=== PATIENT | male | born 1985 | race Two or more races ===

== ENCOUNTER 2024-10-19 06:25 | Day surgery (SDC) | payer BC, SELFPAY ==
--- NOTE | 2024-10-18 06:21 | EKG_ITS ---
[facility] Test Date: 2024-10-18 Pat Name: CLINT HASTINGS Department: Room: - Gender: Male Occupational Health Nurse Manager: RT STUDENT : 1985 Requested By: Trini Aldridge Order Number: [id number] Reading MD: Trini Aldridge Measurements Intervals [place] Rate: 68 P: 28 OR: 134 QRS: -33 QRSD: 94 T: -2 QT: 380 QTc: 404 Interpretive Statements SINUS RHYTHM WITH SINUS ARRHYTHMIA MARKED LEFT AXIS DEVIATION No previous ECG available for comparison /store/[id number]/[id number].pdf
[2024-10-18 08:48] VITALS: BMI 28.2
[2024-10-18 10:01] LABS: Basophils % (Auto) 0 % (0-2.5); Eosinophils # (Auto) 0.1 Thou/mm3 (0.0-0.5); Eosinophils % (Auto) 1 % (0-10); Hematocrit 50.6 % (41.0-53.0); Hemoglobin 17.7 g/dL (13.5-16.0); Immature Granulocytes % (Auto) 0 % (0-0); Immature Granulocytes Auto 0.02 Thou/mm3 (0.00-0.00); Lymphocytes # (Auto) 1.4 Thou/mm3 (1.0-4.8); Lymphocytes % (Auto) 28 % (10-50); Mean Corpuscular Hemoglobin 30.2 pg (25.0-35.0); Mean Corpuscular Volume 86 fL (80-100); Monocytes # (Auto) 0.4 Thou/mm3 (0.0-0.8); Monocytes % (Auto) 8 % (0-12); Neutrophils % (Auto) 61 % (37-80); Nucleated Red Blood Cell % 0 /100 WBC (0); Platelet Count 319 Thou/mm3 (140-440); RDW Standard Deviation 39.4 fL (35.1-43.9); Red Blood Count 5.87 Miln/mm3 (4.50-5.90); White Blood Count 4.9 Thou/mm3 (3.8-10.6)
[2024-10-18 10:09] LABS: Anion Gap 6 (7-16); BUN/Creatinine Ratio 11 Ratio (12-20); Blood Urea Nitrogen 13 mg/dL (9-23); Calcium 9.9 mg/dL (8.3-10.6); Carbon Dioxide 28.1 mMol/L (20.0-31.0); Chloride 104 mMol/L (98-107); Creatinine (Component) 1.2 mg/dL (0.6-1.3); Estimated Creatinine Clearance 81.1 mL/min (>60); Glucose 102 mg/dL (74-106); Osmolality,Calculated 275 (275-295); Potassium 4.7 mMol/L (3.4-5.1); Sodium 138 mMol/L (136-145); eGFR > 60 See Note
[2024-10-19] VITALS (8 sets, daily range): BP systolic 137–164; BP diastolic 87–110; PULSE 58–88; RESP 12–18; TEMP 36.5–37.1; O2SAT 92–100
--- NOTE | 2024-10-19 10:35 | SUR.PHASEI ---
1035: Pt. AAOx4, vitals stable, breathing unlabored, complaint of pain, will give medications, no complaint of nausea, dressing to ABD CDI, no active bleed noted, report received from Deepa HDEZ and Myrna WOLF.
[2024-10-19] MEDS: fentaNYL CIT INJ 50 mCg/ML AMP 2ML IV ×3 (10:41→11:05)
--- NOTE | 2024-10-19 10:41 | PD.SUROPNT ---
Date of Procedure 10/19/24 Pre Op Diagnosis Incarcerated supraumbilical ventral hernia Post Op Diagnosis Incarcerated supraumbilical ventral hernia Umbilical hernia Procedure Laparoscopic assisted repair of incarcerated supraumbilical ventral hernia and umbilical hernia with mesh Findings Patient was noted to have 2 cm umbilical hernia. Immediately above the umbilical hernia patient was noted to have a 2 cm ventral hernia with incarcerated omentum Procedure Description Patient brought into the operating room in supine position. After administration of general orotracheal anesthesia, patient's abdomen prepped and draped in standard surgical manner. A 5 mm incision was made in left upper quadrant and Veress needle was inserted, pneumoperitoneum was obtained to 15 mmHg. The Veress needle was removed and a 5 mm trocar was placed. Laparoscopic camera was inserted, under direct visualization a laparoscopic camera a 5 mm trocar placed in left lower quadrant and additional 5 mm trocar placed in right lower quadrant. The abdomen was inspected and patient was noted to have an incarcerated supra umbilical ventral hernia with omentum being incarcerated within the hernia sac. The hernia sac was excised with Harmonic scalpel laparoscopically and the omentum was reduced. He was also noted to have an approximately 2 cm umbilical hernia defect that was immediately inferior to the other hernia. At this point approximately 3 cm semicircular incision was made superior to the umbilicus and dissection was carried to subcutaneous tissue. The hernia sac was circumferentially dissected off surrounding tissue and excised from surrounding abdominal fascia. The fascia was cleared from overlying tissue. The defects were connected with a total defect diameter of approximately 5 cm. . A 4 x 6 elliptical shape proceed mesh was used to cover the defect. 2 tacking sutures using 0 Ethibond placed the 2 ends of the mesh and the mesh was placed inside the abdominal cavity through the hernia defect. The defect was closed with interrupted sutures using 0 Ethibond. The umbilicus was tacked into the underlying abdominal fascia with 2-0 Vicryl suture and subcutaneous tissue closed with interrupted sutures of 2-0 Vicryl. The abdomen was once again insufflated. 2 tacking sutures of the 2 ends of the mesh were retrieved through the previously marked abdominal wall site. Sutures were tightened and the mesh was further secured into anterior abdominal wall with secure strap tacking device. The mesh was covering the defect with at least 4 cm circumferential margin. Hemostasis was adequate and satisfactory. Instruments and trocars removed, pneumoperitoneum was evacuated and the incisions closed with olay. Instruments, needles and sponge counts were reported to be correct ?2 patient tolerated the procedure well. Patient was extubated, breathing spontaneously and without difficulty and was transferred to postanesthesia care in stable condition. Anesthesia GETA and local Pathology / specimen Other (Hernia sac) Estimated Blood Loss 5 Condition Stable Disposition PACU Surgeon Trini Aldridge MD Surgical Staff Operation Date: 10/19/24 08:45 Case Staff HEAD [employer]LL[employer] CAPTAIN: Deepa Kuhn
--- NOTE | 2024-10-19 11:40 | SUR.PHASEII ---
1140: Pt. AAOx4, vitals stable, breathing unlabored, complaint of slight pain, no complaint of nausea, dressing to ABD CDI, no active bleed noted, ABD Binder in place, pt. tolerated sips of water well, pt. ambulated to wheelchair with steady gait and minimal assist, no complications. Gave discharge instructions to the pt. and his ride, both verbalized understanding and had no further questions. Pt. left with all personal belongings.
== END 2024-10-19 11:40 | disposition home or self-care (01) ==
PROVIDERS: PCP Internal Medicine; Referring Provider Surgery; Visit Provider Surgery
PROC: (CPT 49594; principal; 2024-10-19 08:30)
DX: K42.0 Umbilical hernia with obstruction, without gangrene (principal); K43.6 Other and unspecified ventral hernia with obstruction, without gangrene
CPT/HCPCS: 49594; 36415; 80048; 85025; 93005; A4217; A4649; C1781; J0131; J0690; J1100; J1885; J2250; J2405; J2704; J3010; J3490

== ENCOUNTER → 2025-03-07 | Outpatient (CLI) | payer BC, SELFPAY ==
[2025-03-07 11:07] LABS: Collection Type, Urine Clean Catch; Squamous Epithelial Cell,Urine 0 /hpf (0-5)
[2025-03-07 11:29] LABS: Bilirubin,Urine Negative (Negative); Blood,Urine Negative (Negative); Clarity,Urine Clear (Clear/Hazy); Color,Urine Yellow (Lt Yel-Yel); Glucose, Urine Negative (Negative); Ketones,Urine Negative (Negative); Leukocyte Esterase,Urine Negative (Negative); Nitrite,Urine Negative (Negative); Protein,Urine Negative (Neg - Trace); RBC,Urine 1 /hpf (0-3); Specific Gravity,Urine 1.027 (1.001-1.035); Urobilinogen,Urine Negative mg/dL (0.0-1.0); WBC,Urine < 1 /hpf (0-5)
[2025-03-07 11:31] LABS: Basophils % (Auto) 0 % (0-2.5); Eosinophils # (Auto) 0.1 Thou/mm3 (0.0-0.5); Eosinophils % (Auto) 2 % (0-10); Hematocrit 50.5 % (41.0-53.0); Hemoglobin 17.4 g/dL (13.5-16.0); Immature Granulocytes % (Auto) 1 % (0-0); Immature Granulocytes Auto 0.03 Thou/mm3 (0.00-0.00); Lymphocytes # (Auto) 1.6 Thou/mm3 (1.0-4.8); Lymphocytes % (Auto) 34 % (10-50); Mean Corpuscular HGB Conc 34.5 g/dl (31.0-37.0); Mean Corpuscular Hemoglobin 30.1 pg (25.0-35.0); Mean Corpuscular Volume 87 fL (80-100); Monocytes # (Auto) 0.5 Thou/mm3 (0.0-0.8); Monocytes % (Auto) 10 % (0-12); Neutrophils # (Auto) 2.6 Thou/mm3 (1.8-7.7); Neutrophils % (Auto) 54 % (37-80); Nucleated Red Blood Cell % 0 /100 WBC (0); Platelet Count 286 Thou/mm3 (140-440); RDW Standard Deviation 40.4 fL (35.1-43.9); Red Blood Count 5.79 Miln/mm3 (4.50-5.90); White Blood Count 4.8 Thou/mm3 (3.8-10.6)
[2025-03-07 11:43] LABS: Glucose Estimated Average 111 mg/dL (80-131); Hemoglobin A1C 5.5 % Hgb (4.8-6.0)
[2025-03-07 11:44] LABS: Prostate Specific Antigen 0.89 ng/mL (0-4.00)
[2025-03-07 11:46] LABS: Alanine Aminotransferase 60 U/L (10-49); Albumin, Serum 4.5 gm/dL (3.5-5.0); Albumin/Globulin Ratio 1.7 (1.2-2.2); Alkaline Phosphatase 79 U/L (46-116); Anion Gap 6 (7-16); Aspartate Amino Transferase 29 U/L (0-34); BUN/Creatinine Ratio 16 Ratio (12-20); Bilirubin,Total 0.7 mg/dL (0.3-1.2); Blood Urea Nitrogen 18 mg/dL (9-23); Calcium 9.8 mg/dL (8.3-10.6); Calcium (Corrected) 9.8 mg/dL (8.5-10.1); Carbon Dioxide 29.4 mMol/L (20.0-31.0); Cardiac Risk Estimate 7.1 RATIO (4.0-6.7); Chloride 107 mMol/L (98-107); Cholesterol 249 mg/dL (132-200); Creatinine (Component) 1.1 mg/dL (0.6-1.3); Globulin 2.6 gm/dL (2.3-3.5); Glucose 93 mg/dL (74-106); HDL Cholesterol 35 mg/dL (40-60); LDL Cholesterol,Calculated 179 mg/dL (0-130); Osmolality,Calculated 285 (275-295); Potassium 4.8 mMol/L (3.4-5.1); Sodium 142 mMol/L (136-145); Thyroid Stimulating Hormone 1.36 uIU/mL (0.55-4.78); Total Protein 7.1 gm/dL (5.7-8.2); Triglycerides 175 mg/dL (30-150); Uric Acid 7.8 mg/dL (3.7-9.2); eGFR > 60 See Note
[2025-03-07 11:53] LABS: Vitamin B12 451 pg/mL (211-911); Vitamin D 25 Hydroxy Total 17.2 ng/mL (7.3-40.2)
== END | disposition home or self-care (01) ==
LOC: COPL 10:12
PROVIDERS: PCP Internal Medicine; Referring Provider Internal Medicine; Visit Provider Internal Medicine
DX: Z00.00 Encounter for general adult medical examination without abnormal findings (principal)
CPT/HCPCS: 36415; 80053; 80061; 81001; 82306; 82607; 83036; 84153; 84443; 84550; 85025